=== PATIENT | male | born 1990 | race African-American/Black ===

== ENCOUNTER → 2016-09-06 | Emergency (ER) | payer MEDICAID ==
[~2016-09-06] VITALS: Ht 177.8 cm; Wt 68.0 kg
[~2016-09-06] MED LIST: BACTRIM DS TAB1 EAC1 ORAL; HYDROCODON-ACE1 EA15 ORAL
[2016-09-06 03:56] VITALS: BP 141/83
--- NOTE | 2016-09-06 05:15 | Emergency Room Report ---
History of Present Illness General Chief Complaint: Skin Rash/Abscess Source: Patient Present Illness HPI This 26-year-old male with no significant past history. He presents with chief complaint of an abscess to the left axilla. Onset about week and a half. He squeezed part of it out. Now seem to be spreading. Denies any fever chills denies any nausea vomiting. Never had this problem before. Pain is 5/10. Allergies: Coded Allergies: No Known Allergies (Unverified , 09/06/16) Patient History Past Medical History: see triage record, old chart reviewed Past Surgical History: other Pertinent Family History: none Social History: Denies: smoking Immunizations: other Reviewed Nursing Documentation: PMH: Agreed, PSxH: Agreed Nursing Documentation-PMH Past Medical History: No Stated History Review of Systems Eye: Denies: blurred vision, eye pain ENT: Denies: ear pain, nose congestion, throat swelling Respiratory: Denies: cough, shortness of breath Cardiovascular: Denies: chest pain, palpitations Gastrointestinal: Denies: abdominal pain, diarrhea, nausea, vomiting Musculoskeletal: Denies: back pain, joint pain Skin: Denies: rash Neurological: Denies: headache, numbness Endocrine: Denies: increased thirst, increased urine Hematologic/Lymphatic: Denies: easy bruising All Other Systems: negative except mentioned in HPI Physical Exam Vital Signs Date Time Temp Pulse Resp B/P Pulse Ox O2 Delivery O2 Flow Rate FiO2 09/06/16 03:56 97.9 100 14 141/83 100 Room Air vitals unremarkable Sp02 EP Interpretation: reviewed, normal General Appearance: well appearing, no apparent distress, alert Head: normocephalic, atraumatic Eyes: bilateral eye EOMI, bilateral eye PERRL ENT: hearing grossly normal, normal pharynx Neck: full range of motion, supple, no meningismus Respiratory: chest non-tender, lungs clear, normal breath sounds Cardiovascular #1: regular rate, rhythm, no murmur Gastrointestinal: normal bowel sounds, non tender, no mass, no organomegaly, no bruit, non-distended Musculoskeletal: back normal, gait/station normal, normal range of motion, other - Left axilla: He had 3 indurated area. The most distal one is a central scab. That his erythema. No fluctuant area. Psychiatric: mood/affect normal Skin: warm/dry Procedures Incision and Drainage Incision and Drainage : Consent: Verbal Site: Left axilla Blade Size: 11 I & D Procedure: betadine prep, sterile drapes applied, sterile dressing applied Wound Location: upper extremity Anesthesia: 1% Lidocaine Volume Anesthetic (ccs): 2 Patient Tolerated: Well Complications: None Progress Local anesthetic 1% lidocaine. A made 1 cm incision over each indurated area. The most distal one has no drainage. The other 2 have scant amount of pus. Rated area explored. Dressing placed. Patient tolerated procedure without a problem. Medical Decision Making Diagnostic Impression: Primary Impression: Hidradenitis suppurativa of left axilla ER Course Patient with abscess to the axilla. Superficial. Most likely MRSA. We'll discharge home with antibiotics. Last Vital Signs Date Time Temp Pulse Resp B/P Pulse Ox O2 Delivery O2 Flow Rate FiO2 09/06/16 03:56 97.9 100 14 141/83 100 Room Air Status: improved Disposition: HOME, SELF-CARE Condition: Stable Scripts Hydrocodone/Acetaminophen 5-325* (HYDROCODONE/ACETAMINOPHEN 5-325*) 1 Each Tablet 1 TAB ORAL Q6H Y for For Pain, #15 TAB 0 Refills Prov: MARY ELLEN GASTELUM M.D. 09/06/16 Trimethoprim/Sulfamethoxazole 160/800* (BACTRIM DS TABLET*) 1 Each Tablet 1 TAB ORAL Q12H, #14 TAB 0 Refills Prov: MARY ELLEN GASTELUM M.D. 09/06/16 Patient Instructions: Abscess Additional Instructions: Followup with your Dr. in 3-7 days for recheck. Return if worse. MARY ELLEN GASTELUM M.D. Sep 06, 2016 05:15
[2016-09-06 05:23] VITALS: BP 108/71
== END | disposition home or self-care (01) ==
LOC: EMR 05:05
DX: L73.2 Hidradenitis suppurativa (principal)
CPT/HCPCS: 10060